=== PATIENT | male | born 1995 | race Caucasian/White ===

== ENCOUNTER 2017-09-27 19:20 | Emergency (ER) | payer OTHER ==
[~2017-09-27] VITALS: Ht 177.8 cm; Wt 104.5 kg
[~2017-09-27 19:20] MED LIST: CEPH-443 PO; HYDR-3498 PO; IBUP-1542 PO
[2017-09-27 19:43] VITALS: Ht 177.8 cm; Wt 104.5 kg
--- NOTE | 2017-09-27 22:14 | ERD ---
ER Documentation Chief Complaint Chief Complaint left ankle pain today s/p injury. +swelling HPI 22-year-old male presents to emergency department for complaints of left ankle pain and swelling that started today after twisting it. Patient describes the pain as throbbing pain,8/10 scale, not better or worse with anything. Patient denies any fever chills. Patient denies any deformity. Patient did not take any medications to help with symptoms. ROS All systems reviewed and are negative except as per history of present illness. Medications Home Meds Active Scripts Ibuprofen* (Motrin*) 600 Mg Tab, 600 MG PO Q6, #20 TAB Prov:CLAYTON MACIAS PA-C 07/19/15 Hydrocodone Bit-Acetaminophen* ([place]*) 5-325 Mg Tab, 1 TAB PO Q6 Y for PAIN, # 10 TAB Prov:CLAYTON MACIAS PA-C 07/19/15 Cephalexin* (Keflex*) 500 Mg Capsule, 500 MG PO QID for 7 Days, CAP Prov:CLAYTON MACIAS PA-C 07/19/15 Allergies Allergies: Coded Allergies: No Known Allergy (Unverified , 09/27/17) PMhx/Soc Medical and Surgical Hx: pt denies Medical Hx, pt denies Surgical Hx Hx Alcohol Use: No Hx Substance Use: No Hx Tobacco Use: No FmHx Family History: No coronary disease, No diabetes, No other Physical Exam Vitals Vital Signs Date Time Temp Pulse Resp B/P Pulse Ox O2 Delivery O2 Flow Rate FiO2 09/27/17 19:43 98.9 98 18 122/69 100 Physical Exam GENERAL: The patient is well developed and appropriate for usual state of health, in no apparent distress. CHEST: Clear to auscultation bilaterally. There are no rales, wheezes or rhonchi. HEART: Regular rate and rhythm. No murmurs, clicks, rubs or gallops. No S3 or S4. ABDOMEN: Soft, nontender and nondistended. Good bowel sounds. No rebound or guarding. No gross peritonitis. No gross organomegaly or masses. No Miles sign or McBurney point tenderness. BACK: No midline or flank tenderness. EXTREMITIES: Noted tenderness on palpation on the lateral malleolus of the left ankle, able to do full range of motion without any restriction but with pain, able to ambulate on it and apply weight on it. No deformity noted. Equal pulses bilaterally. Full range of motion of other joints of the body. Full range of motion. Grossly neurovascularly intact. NEURO: Alert and oriented. Cranial nerves 2-12 intact. Motor strength in all 4 extremities with 5/5 strength. Sensation grossly intact. Normal speech and gait. SKIN: There is no apparent rash or petechia. The skin is warm and dry. HEMATOLOGIC AND LYMPHATIC: There is no evidence of excessive bruising or lymphedema. No gross cervical, axillary, or inguinal lymphadenopathy. Results 24 hrs Current Medications Medications (Trade) Dose Ordered Sig/Ethan Route PRN Reason Start Time Stop Time Status Last Admin Dose Admin Ibuprofen (Motrin) 600 mg ONCE ONCE PO 09/27/17 22:30 09/27/17 22:31 DC 09/27/17 22:30 Patient was given medication for pain here in emergency department, after treatment, patient verbalized feeling much better. Patient's pain is improved. PROCEDURE: XR Left Ankle. CLINICAL INDICATION: Left ankle pain status post injury TECHNIQUE: AP, oblique and lateral views of the left ankle were performed. COMPARISON: None. FINDINGS: There is lateral soft tissue swelling. There is an approximate 9 x 3 mm oval ossific density distal to the distal fibula which could represent a fracture fragment. No dislocation is seen IMPRESSION: There is lateral soft tissue swelling. There is suggestion of possible ankle effusion. There is an approximate 9 x 3 mm oval ossific density distal to the distal fibula which could represent a fracture fragment. RPTAT: HJES .Ruel Blue MD, MD Date Time Electronically viewed and signed by .Ruel Blue MD, on 09/27/2017 23:06 .S/ CC: TONJA DAVIES NP After receiving patients xray report, a stirrup splint was applied on the patients left ankle. After application of the splint, patient has intact sensation and circulation on distal area of the affected joint. Patient does not complain of numbness or tingling after application of the splint. Patient tolerated procedure well. Crutches was given to use afterwards. Procedures/MDM Medical Decision Making: Patient's pain is most likely consistent with a fracture of the ankle. There is no suspicion for neurovascular compromise. Patient has intact sensation and circulation of the affected extremity. There is low suspicion for septic arthritis. Patient does not have any fever. Radiology exams of the affected area does not show any dislocation. Disposition: Home. Patient is given prescription for ibuprofen for pain [place] for severe pain. Patient was advised to elevate the affected area and apply ice on affected area. Patient was advised that if symptoms are worse, numbness, tingling, high fever, unable to move joint, worsening symptoms, to return to emergency department immediately. Otherwise, patient is advised to follow up with the primary care doctor in 5-7 days for reevaluation of symptoms. See orthopedic doctor, elevate affected area, keep the splint and use crutches as prescribed Disclaimer: Inadvertent spelling and grammatical errors are likely due to EHR/ dictation software use and do not reflect on the overall quality of patient care. Also, please note that the electronic time recorded on this note does not necessarily reflect the actual time of the patient encounter. Departure Diagnosis: Primary Impression: Ankle fracture, left Encounter type: initial encounter Fracture type: closed Qualified Code: S82.892A - Closed fracture of left ankle, initial encounter Condition: Stable Patient Instructions: Ankle Fracture (Distal Fibula), Closed Additional Instructions: Patient is given prescription for ibuprofen for pain [place] for severe pain. Patient was advised to elevate the affected area and apply ice on affected area. Patient was advised that if symptoms are worse, numbness, tingling, high fever, unable to move joint, worsening symptoms, to return to emergency department immediately. Otherwise, patient is advised to follow up with the primary care doctor in 5-7 days for reevaluation of symptoms. See orthopedic doctor, elevate affected area, keep the splint and use crutches as prescribed TONJA DAVIES NP Sep 27, 2017 22:14
[2017-09-27] MEDS ORDERED: IBUPROFEN 600 MG TAB PO ONE (22:30)
--- NOTE | 2017-09-27 23:07 | RADRPT ---
PROCEDURE: XR Left Ankle. CLINICAL INDICATION: Left ankle pain status post injury TECHNIQUE: AP, oblique and lateral views of the left ankle were performed. COMPARISON: None. FINDINGS: There is lateral soft tissue swelling. There is an approximate 9 x 3 mm oval ossific density distal to the distal fibula which could represent a fracture fragment. No dislocation is seen IMPRESSION: There is lateral soft tissue swelling. There is suggestion of possible ankle effusion. There is an a pproximate 9 x 3 mm oval ossific density distal to the distal fibula which could represent a fractur e fragment. RPTAT: HJES .Ruel Blue MD, MD Date Time Electronically viewed and signed by .Ruel Blue MD, on 09/27/2017 23:06 .S/
[2017-09-27] MEDS ORDERED: IBUP-1542 PO (23:20)
[2017-09-27] MEDS ORDERED: HYDR-906 PO (23:20)
[2017-09-28 00:24] VITALS: BP 129/81; PULSE 87; RESP 18; TEMP 98.4
== END 2017-09-28 00:26 | disposition home or self-care (01) ==
LOC: FTE 19:20
DX: S82.892A Other fracture of left lower leg, initial encounter for closed fracture (principal); X50.9XXA Other and unspecified overexertion or strenuous movements or postures, initial encounter; Y92.9 Unspecified place or not applicable
CPT/HCPCS: 29515; 73610; Z7502; Z7610

== ENCOUNTER 2019-04-21 14:28 | Emergency (ER) | payer OTHER ==
[~2019-04-21] VITALS: Ht 180.3 cm; Wt 124.0 kg
[~2019-04-21 14:28] MED LIST changes: +HYDR-4011 PO
[2019-04-21 14:31] VITALS: BP 139/79; PULSE 78; RESP 16; Ht 180.3 cm; Wt 124.0 kg
[2019-04-21] MEDS ORDERED: CYCL10TA7 PO (15:03)
[2019-04-21] MEDS ORDERED: NAPR-985 PO (15:03)
--- NOTE | 2019-04-21 15:10 | ERD ---
ER Documentation Chief Complaint Chief Complaint Pt with R arm pain X 2 days , after working out in the gym HPI 23-year-old male presented to the emergency department complaining of pain in the right bicep after lifting weights 2 days ago. Pain is intermittent, moderate in severity, worse with movement. He tried 200 mg ibuprofen at home without significant relief. He denies any shoulder pain, elbow pain, hand pain, wrist pain. He denies any fevers or chills or other symptoms at this time. He denies any direct trauma or falls. ROS All systems reviewed and are negative except as per history of present illness. Medications Home Meds Active Scripts Naproxen* (Naprosyn*) 500 Mg Tablet, 500 MG PO BID PRN for PAIN AND/OR INFLAMMATION, #30 TAB Prov:DELMER ALEXANDER PA-C 04/21/19 Cyclobenzaprine Hcl* (Cyclobenzaprine Hcl*) 10 Mg Tablet, 10 MG PO TID, #15 TAB Prov:DELMER ALEXANDER PA-C 04/21/19 Hydrocodone/Acetaminophen ([place] 5-325 Tablet) 1 Each Tablet, 1 EACH PO Q6, #30 TAB Prov:TONJA DAVIES NP 09/27/17 Ibuprofen* (Motrin*) 600 Mg Tab, 600 MG PO Q6H PRN for PAIN AND OR ELEVATED TEMP, #30 TAB Prov:TONJA DAVIES [employer] 09/27/17 Ibuprofen* (Motrin*) 600 Mg Tab, 600 MG PO Q6, #20 TAB Prov:CLAYTON MACIAS PA-C 07/19/15 Hydrocodone Bit-Acetaminophen* ([place]*) 5-325 Mg Tab, 1 TAB PO Q6 PRN for PAIN, #10 TAB Prov:CLAYTON MACIAS PA-C 07/19/15 Cephalexin* (Keflex*) 500 Mg Capsule, 500 MG PO QID for 7 Days, CAP Prov:CLAYTON MACIAS PA-C 07/19/15 Allergies Allergies: Coded Allergies: No Known Allergy (Unverified , 09/27/17) PMhx/Soc History of Surgery: Yes (Testicular cyst) Anesthesia Reaction: No Hx Neurological Disorder: No Hx Respiratory Disorders: No Hx Cardiac Disorders: No Hx Psychiatric Problems: No Hx Miscellaneous Medical Probl: No Hx Alcohol Use: Yes (Socially) Hx Substance Use: No Hx Tobacco Use: No Smoking Status: Never smoker FmHx Family History: No diabetes Physical Exam Vitals Vital Signs Date Temp Pulse Resp B/P (MAP) Pulse Ox O2 O2 Flow FiO2 Time Delivery Rate 04/21/19 98.2 78 16 139/79 99 14:31 (99) Physical Exam Const: No acute distress Head: Atraumatic Eyes: Normal Conjunctiva ENT: Normal External Ears, Nose and Mouth. Neck: Full range of motion. No meningismus. Resp: Clear to auscultation bilaterally Cardio: Regular rate and rhythm, no murmurs Skin: No petechiae or rashes Back: No midline or flank tenderness Ext: Subjective tenderness palpation over the right distal bicep. Slightly limited range of motion of the right elbow secondary to pain. There is no obvious deformity or open fractures noted. Patient is neurovascularly intact the right upper extremity. Neur: Awake and alert Psych: Normal Mood and Affect Procedures/MDM 23-year-old male presents to the emergency department with signs and symptoms most consistent with right biceps strain. Patient's physical examination was not concerning for fracture, compartment syndrome, DVT, or other emergencies. Imaging is not indicated at this time as there was no history of trauma and examination is consistent with a muscular etiology. Patient will be discharged home and is to follow-up with his primary care physician within the next 24 to 48 hours and return to the department immediately for any new or worsening or concerning symptoms. Should my medical decision making with the patient and he understands and agrees with plan. Departure Diagnosis: Primary Impression: Muscle strain Condition: Fair Patient Instructions: Contusion, Upper Extremity Referrals: [facility] YOU HAVE RECEIVED A MEDICAL SCREENING EXAM AND THE RESULTS INDICATE THAT YOU DO NOT HAVE A CONDITION THAT REQUIRES URGENT TREATMENT IN THE EMERGENCY DEPARTMENT. FURTHER EVALUATION AND TREATMENT OF YOUR CONDITION CAN WAIT UNTIL YOU ARE SEEN IN YOUR DOCTORS OFFICE WITHIN THE NEXT 1-2 DAYS. IT IS YOUR RESPONSIBILITY TO MAKE AN APPOINTMENT FOR FOLOW-UP CARE. IF YOU HAVE A PRIMARY DOCTOR --you should call your primary doctor and schedule an appointment IF YOU DO NOT HAVE A PRIMARY DOCTOR YOU CAN CALL OUR PHYSICIAN REFERRAL HOTLINE AT IF YOU CAN NOT AFFORD TO SEE A PHYSICIAN YOU CAN CHOSE FROM THE FOLLOWING [facility] [address] [facility]. [facility] [address] [facility] [address] [facility] [address] [facility]. [facility] [address] [facility]. [facility] [address] Additional Instructions: Call your primary care doctor TOMORROW for an appointment during the next 1-2 days.See the doctor sooner or return here if your condition worsens before your appointment time. DELMER ALEXANDER PA-C Apr 21, 2019 15:10
== END 2019-04-21 15:15 | disposition home or self-care (01) ==
LOC: FTE 14:28
DX: S46.911A Strain of unspecified muscle, fascia and tendon at shoulder and upper arm level, right arm, initial encounter (principal); X50.0XXA Overexertion from strenuous movement or load, initial encounter; Y92.89 Other specified places as the place of occurrence of the external cause
CPT/HCPCS: 99283